=== PATIENT | female | born 1985 ===

== ENCOUNTER 2019-02-18 01:41 | Inpatient (IN) | payer OTHER ==
[2019-02-18] MEDS ORDERED: LACTATED RINGERS 1,000 ML ONE (02:51)
[2019-02-18] MEDS ORDERED: AMPICILLIN/NS 2 GM/100 ML 2 GM/100 ML BAG IV ONE (03:07)
[2019-02-18] MEDS ORDERED: BUTORPHANOL 2 MG/1 ML INJ IV PRN (03:07)
[2019-02-18] MEDS ORDERED: LIDOCAINE (2%) 20 MG/1 ML VIAL 20 ML MDV INFILTRATI ONE ×2 (03:07→15:38)
[2019-02-18] MEDS ORDERED: MINERAL OIL 30 ML ORAL LIQD PO PRN (03:07)
[2019-02-18 03:09] LABS: Hematocrit 31.3 % (30.3-42.9); Hemoglobin 10.5 gm/dl (10.1-14.3); Mean Corpuscular HGB Conc 33 % (30-34); Mean Corpuscular Volume 83 fl (79-97); Platelet Count 301 K/mm3 (140-440); Red Blood Count 3.79 M/mm3 (3.65-5.03); Red Cell Distribution Width 17.8 % (13.2-15.2)
[2019-02-18] MEDS ORDERED: LACTATED RINGERS 1,000 ML IV SCH (04:00)
[2019-02-18] MEDS ORDERED: OXYTOCIN 20 UNIT/1000ML DRIP 20 UNITS/1,000 ML BAG IV SCH (04:00)
[2019-02-18] MEDS: fentaNYL 100 MCG/2 ML INJ IV PRN ×2 (08:46→11:43)
[2019-02-18] MEDS: AMPICILLIN/NS 1 GM/50 ML 1 GM/50 ML BAG IV SCH ×3 (08:46→14:50)
--- NOTE | 2019-02-18 09:38 | History and Physical Report ---
History of Present Illness Date of examination: 02/18/19 Date of admission: 02/18/19 03:08 Chief complaint: "my water broke" History of present illness: 33yo G 2 P 1 0 0 1 at 38 weeks 6 days here with c/o leaking fluid and contractions taht started 02/18/19 @ 00:30. SROM confirmed in triage by RN. She reports +FMs but denies VB. She is a [facility] patient who initiated care there at 30 weeks gestation. She is a late transfer from [place] where she had limited care. Her course has been unremarkable. LABS: A pos, Antibody Screen neg, Pap Test normal, RI VDRL neg, HBsAg neh, HIV neg, Duabetes Screen 82, GC/CT neg, GBS pos. Past History Past Medical History: no pertinent history Past Surgical History: no surgical history Family/Genetic History: diabetes (maternal grandmother) Social history: no significant social history, , lives with family, full code. denies: smoking, alcohol abuse, prescription drug abuse, IV drug use - Obstetrical History Expected Date of Delivery: 02/26/19 Actual Gestation: 38 Week(s) 6 Day(s) : 2 Para: 1 Hx # Term Pregnancies: 1 Number of Pregnancies: 0 Spontaneous Abortions: 0 Induced : 0 Number of Living Children: 1 #1 Infant Gender: Female year: 2[age][birth year] Birthweight: 2.863 kg (6 lbs 5 oz) Method of Delivery: Vaginal Gestational age at delivery: 40 Complications: none Medications and Allergies Allergies Allergy/AdvReac Type Severity Reaction Status Date / Time No Known Allergies Allergy Verified 02/18/19 02:55 Active Meds: Active Medications Butorphanol Tartrate (Stadol) 2 mg IV Q2H PRN PRN Reason: Pain , Severe (7-10) Fentanyl (Sublimaze) 100 mcg IV Q2H PRN PRN Reason: Labor Pain Last Admin: 02/18/19 08:46 Dose: 100 mcg Documented by: Oxytocin/Sodium Chloride (Pitocin/Ns 20 Unit/1000ml Drip) 20 units in 1,000 mls @ 125 mls/hr IV DIRECT IVELISSE Last Admin: 02/18/19 08:47 Dose: 125 mls/hr Documented by: Lactated Ringer's (Lactated Ringers) 1,000 mls @ 125 mls/hr IV DIRECT IVELISSE Ampicillin Sodium (Ampicillin/Ns 1 Gm/50 Ml) 1 gm in 50 mls @ 100 mls/hr IV Q4HR IVELISSE; Protocol Last Admin: 02/18/19 08:46 Dose: 100 mls/hr Documented by: Mineral Oil (Mineral Oil) 30 ml PO QHS PRN PRN Reason: Constipation Review of Systems All systems: negative - Vital Signs Vital signs: Vital Signs Pulse BP 91 H 120/79 02/18/19 02:00 02/18/19 02:00 Temp Pulse Resp BP Pulse Ox 98.3 F 90 20 109/63 98 02/18/19 03:30 02/18/19 09:19 02/18/19 08:46 02/18/19 09:19 02/18/19 02:04 - Physical Exam Genitourinary (Female): Positive: normal external genitalia, normal perenium Vagina: Positive: normal moisture Extremities: Positive: normal - Obstetrical FHR: auscultation normal, category 1 FHR comments: baseline 140, moderate variability, 15x15 accels. occasional early decels Uterine Contraction Monitor Mode: External Cervical Dilatation: 6 Cervical Effacement Percentage: 80 station: -2 Uterine Contraction Frequency (min): 3-4 Uterine Contraction Pattern: Regular Results Result Diagrams: 02/18/19 02:45 Abnormal lab results 02/18/19 Range/Units 02:45 RDW 17.8 H (13.2-15.2) % All other labs normal. Assessment and Plan - Patient Problems (1) 38 weeks gestation of Current Visit: Yes Status: Acute (2) Spontaneous rupture of amniotic membranes Current Visit: Yes Status: Acute (3) Active labor at term Current Visit: Yes Status: Acute Plan to address problem: Admit to L&D with routine labor orders Will start Pitocin for labor augmentation, if indicated Anticipate vaginal delivery (4) Group B Streptococcus carrier, +RV culture, currently Current Visit: Yes Status: Acute Plan to address problem: Continue ampicillin for GBS prophylaxis
[2019-02-18] MEDS ORDERED: ePHEDrine SULFATE 50 MG/1 ML INJ IV PRN (10:30)
[2019-02-18] MEDS ORDERED: TERBUTALINE 1 MG/1 ML INJ IVP PRN (10:30)
[2019-02-18] MEDS ORDERED: TERBUTALINE 1 MG/1 ML INJ SUB-Q PRN (10:30)
[2019-02-18] MEDS ORDERED: FLU VACC QUAD 2019-20 (3 YR UP)/PF 60 MCG/0.5 ML SYRINGE IM ONE (12:00)
[2019-02-18] MEDS ORDERED: OXYTOCIN DRIP 30,000 MILLIUNITS/500 ML BAG IV ONE (14:42)
--- NOTE | 2019-02-18 16:18 | Procedure Note ---
OB Delivery Note - Delivery Date of Delivery: 02/18/19 (15:36) Surgeon: HI ALEJANDRO (CNM) Estimated blood loss: 300cc - Vaginal Delivery presentation: vertex Delivery position: OA Intrapartum events: meconium (terminal), extend. bradycardia (2nd stage pushing) Delivery induction: none Delivery augmentation: pitocin Delivery monitor: external FHT, external uterine Route of delivery: (15:36) Delivery placenta: spontaneous (15:44) Delivery cord: nuchal cord (CAN x1 tight. Reduced after delivery), 3 umbilical vessels Episiotomy: midline Delivery laceration: 1st degree Delivery repair: vicryl (2-0 CT1) Anesthesia: local Delivery comments: of a less vigorous term 7 lbs 14 oz male on 02/18/19 @ 15:36 over midline episiotomy and via somersault maneuver. Umbilical cord double-clamped and cut and baby handed over to NICU/Resp team for resuscitation. Spontaneous delivery of placenta, Castillo-side presenting at 15:44. Moderate lochia present. Fundal massage and IV Pitocin bolus initiated. Fundus F/ML/U-1. Episiotomy repaired with 2-0 vicryl needle under local anesthesia. Patient tolerated the procedure well. Placenta intact; was discarded. Mom and baby in stable condition. - A at 1 minute: 8 at 5 minutes: 9 Gender: Male (7 lbs 14 oz (3563 gm); 20in)
[2019-02-18] MEDS ORDERED: ACETAMINOPHEN 325 MG TAB PO PRN (16:21)
[2019-02-18] MEDS ORDERED: HYDROcodone/ACETAMINOPHEN 5-325 MG TAB PO PRN (16:21)
[2019-02-18] MEDS ORDERED: diphenhydrAMINE 25 MG CAP PO PRN (16:21)
[2019-02-18] MEDS ORDERED: BENZOCAINE/MENTHOL 20/0.5% TOP SPRAY 56 GM TP PRN (16:21)
[2019-02-18] MEDS ORDERED: ONDANSETRON 4 MG/2 ML INJ IV PRN (16:21)
[2019-02-18] MEDS ORDERED: MAGNESIUM HYDROXIDE (MOM) ORAL LIQD UDC PO PRN (16:21)
[2019-02-18] MEDS ORDERED: PROMETHAZINE 25 MG RECT SUPP PR PRN (16:21)
[2019-02-18] MEDS ORDERED: WITCH HAZEL/ GLYCERIN PAD TP PRN (16:21)
[2019-02-18] MEDS ORDERED: LANOLIN/ZINC/DIMETHICONE (LANSINOH) 7 GM TP PRN (16:21)
[2019-02-18] MEDS ORDERED: PROMETHAZINE 25 MG TAB PO PRN (16:21)
[2019-02-18] MEDS: DOCUSATE SODIUM 100 MG CAP PO SCH (21:40)
[2019-02-18] MEDS: FERROUS SULFATE 325 MG TAB PO SCH (21:40)
[2019-02-19] MEDS: IBUPROFEN 600 MG TAB PO SCH ×4 (00:14→17:36)
[2019-02-19 05:55] LABS: Hematocrit 26.7 % (30.3-42.9); Hemoglobin 8.9 gm/dl (10.1-14.3)
[2019-02-19] MEDS: PRENATAL VIT27-FE FUMARATE-FOLIC ACID VIT TAB PO SCH (09:23)
[2019-02-19] MEDS: DOCUSATE SODIUM 100 MG CAP PO SCH (09:23)
[2019-02-19] MEDS: FERROUS SULFATE 325 MG TAB PO SCH (09:23)
--- NOTE | 2019-02-19 09:50 | Progress Note ---
Assessment and Plan - Patient Problems (1) Status post normal vaginal delivery Current Visit: Yes Status: Acute Plan to address problem: Continue routine PP orders Anticipate d/c home tomorrow F/U at office in 6 wks for routine PP visit or prn (2) Anemia Current Visit: Yes Status: Acute Qualifiers: Anemia type: iron deficiency Plan to address problem: Asymptomatic Continue oral daily iron supplementation as directed Increase iron rich foods into diet Subjective - Subjective Date of service: 02/19/19 Principal diagnosis: S/P ; PPD#1 Interval history: See admission H & P; OB delivery summary and PP progress notes Patient reports: appetite normal, voiding normally, pain well controlled, flatus, ambulating normally : doing well, bottle feeding (and ) Objective - Vital Signs Latest vital signs: Vital Signs Temp Pulse Resp BP BP Pulse Ox 02/19/19 06:15 97.7 F 89 20 96/55 98 02/19/19 05:36 20 02/19/19 02:27 98.6 F 78 18 101/58 98 02/19/19 00:14 20 02/18/19 21:31 98.7 F 86 18 101/61 98 02/18/19 20:30 98.7 F 86 18 101/61 98 02/18/19 17:25 97.8 F 89 18 116/67 99 02/18/19 16:57 97 H 117/64 02/18/19 16:43 99 H 121/70 02/18/19 16:27 97 H 116/57 02/18/19 16:16 102 H 120/60 02/18/19 16:02 93 H 122/64 02/18/19 15:58 96 H 120/59 02/18/19 15:52 115 H 128/64 02/18/19 15:47 103 H 121/65 02/18/19 15:43 101 H 119/60 02/18/19 15:30 93 H 80 L 02/18/19 15:29 129 H 100 02/18/19 15:25 80 82 L 02/18/19 15:22 88 98 02/18/19 15:17 105 H 99 02/18/19 15:12 104 H 100 02/18/19 15:06 92 H 99 02/18/19 15:01 97 H 100 02/18/19 14:56 100 H 94 02/18/19 14:49 98 H 122/57 97 02/18/19 14:44 106 H 100 02/18/19 14:39 110 H 98 02/18/19 14:37 58 L 88 02/18/19 14:34 103 H 99 02/18/19 14:30 103 H 86 02/18/19 14:28 102 H 97 02/18/19 14:23 105 H 100 02/18/19 14:20 102 H 106/57 02/18/19 14:18 109 H 97 02/18/19 14:16 84 02/18/19 14:13 98 H 98 02/18/19 14:08 101 H 99 02/18/19 14:03 101 H 100 02/18/19 13:58 97 H 99 02/18/19 13:53 99 H 99 02/18/19 13:49 100 H 107/52 02/18/19 13:48 104 H 100 02/18/19 13:43 102 H 100 02/18/19 13:38 102 H 100 02/18/19 13:19 104 H 116/70 02/18/19 12:50 93 H 114/67 02/18/19 12:19 85 123/71 02/18/19 11:50 73 141/67 02/18/19 11:21 101 H 115/68 02/18/19 10:51 85 114/70 02/18/19 10:19 96 H 120/60 02/18/19 09:49 86 111/69 Intake and Output 02/18/19 02/19/19 02/19/19 23:59 07:59 15:59 Intake Total 480 Output Total 600 Balance -120 Intake: Intake, Free Water 480 Output: Urine 600 Void 600 Other: Total, Output Amount 600 - Exam Breasts: Present: normal Cardiovascular: Present: Regular rate Lungs: Present: Normal air movement Abdomen: Present: soft Uterus: Present: firm, fundal height below umbilicus (U-1) Extremities: Present: normal Deep Tendon Reflex Grade: Normal +2 Incision: Present: other (1st degree perineal laceration, healing as expected) - Labs Labs: Abnormal lab results 02/19/19 Range/Units 05:33 Hgb 8.9 L (10.1-14.3) gm/dl Hct 26.7 L (30.3-42.9) %
--- NOTE | 2019-02-19 09:56 | Discharge Summary ---
Providers - Providers Date of Admission: 02/18/19 03:08 Date of discharge: 02/20/19 Attending physician: DUSTIN TOTH MD Primary care physician: DUSTIN TOTH MD Hospitalization Reason for admission: rupture of membranes, IUP at term Delivery: Episiotomy: none Laceration: 1st degree (healing as expected) Other procedures: none complications: none Discharge diagnosis: IUP at term delivered, other (Anemia) [place] baby: male Hospital course: See admission H & P; OB delivery summary and PP progress notes Condition at discharge: Stable Disposition: DC-01 TO HOME OR SELFCARE - Discharge Diagnoses (1) Status post normal vaginal delivery Status: Acute (2) Anemia Status: Acute Qualifiers: Anemia type: iron deficiency Plan - Discharge Medications Prescriptions: Ferrous Sulfate [Feosol 325 MG tab] 325 mg PO BID 30 Days #60 tablet - Provider Discharge Summary Activity: routine, no sex for 6 weeks, no heavy lifting 4 weeks, no strenuous exercise Diet: other (Iron rich diet) Instructions: routine Additional instructions: [] Smoking cessation referral if applicable(refer to patient education folder for contact #) [] Refer to [facility] Booklet Call your doctor immediately for: * Fever > 100.5 * Heavy vaginal bleeding ( >1 pad per hour) * Severe persistent headache * Shortness of breath * Reddened, hot, painful area to leg or breast * Drainage or odor from incision. * Keep laceration site clean and dry at all times and follow doctor's instructions regarding bathing/showering * Continue daily oral iron supplementation as directed - Follow up plan Follow up: DUSTIN TOTH MD [Primary Care Provider] - 6 Weeks
[2019-02-20] MEDS: FERROUS SULFATE 325 MG TAB PO SCH (10:37)
[2019-02-20] MEDS: DOCUSATE SODIUM 100 MG CAP PO SCH (10:37)
[2019-02-20] MEDS: PRENATAL VIT27-FE FUMARATE-FOLIC ACID VIT TAB PO SCH (10:38)
[2019-02-20 15:02] VITALS: BP 102/59
== END 2019-02-20 15:00 | disposition home or self-care (01) | DRG 807 ==
LOC: TRG 01:41 → LD 02:09 → TRG 03:07 → OBSVTOIN 03:08 → LD 03:08 → OB 17:26
PROVIDERS: ADMIT Obstetrics & Gynecology; ATTEND Obstetrics & Gynecology
PROC: 10E0XZZ Delivery of Products of Conception, External Approach (ICD-10-PCS; principal; 2019-02-18)
PROC: 0HQ9XZZ Repair Perineum Skin, External Approach (ICD-10-PCS; 2019-02-18)
PROC: 0W8NXZZ Division of Female Perineum, External Approach (ICD-10-PCS; 2019-02-18)
DX: O99.824 Streptococcus B carrier state complicating childbirth (principal); Z37.0 Single live birth; O76 Abnormality in fetal heart rate and rhythm complicating labor and delivery; O70.0 First degree perineal laceration during delivery; O69.1XX0 Labor and delivery complicated by cord around neck, with compression, not applicable or unspecified; O77.0 Labor and delivery complicated by meconium in amniotic fluid; Z3A.38 38 weeks gestation of pregnancy; Z83.3 Family history of diabetes mellitus; O99.02 Anemia complicating childbirth; D50.9 Iron deficiency anemia, unspecified
CPT/HCPCS: 36415; 85014; 85018; 85027; 86592; 86850; 86900; 86901; 87806; 90686; 96360; 96374; G0378; J0290; J2590; J3010; J7120

== ENCOUNTER 2020-11-27 15:09 | Inpatient (IN) | payer MEDICAID, OTHER ==
[2020-11-27] MEDS ORDERED: NalbUPHINE 10 MG/1 ML INJ IV PRN (16:56)
[2020-11-27] MEDS ORDERED: LIDOCAINE (2%) 20 MG/1 ML VIAL 20 ML MDV INFILTRATI ONE (16:56)
[2020-11-27] MEDS ORDERED: miSOPROStol 200 MCG TAB PR PRN (16:56)
[2020-11-27] MEDS ORDERED: TERBUTALINE 1 MG/1 ML INJ SUB-Q PRN (16:56)
[2020-11-27] MEDS ORDERED: BUTORPHANOL 2 MG/1 ML INJ IV PRN ×2 (16:56)
[2020-11-27] MEDS ORDERED: METHYLERGONOVINE MALEATE 0.2 MG/ML VIAL IM PRN (16:56)
[2020-11-27] MEDS ORDERED: LOPERAMIDE 2 MG CAP PO PRN (16:56)
[2020-11-27] MEDS ORDERED: CARBOPROST TROMETHAMINE 250 MCG/1 ML INJ IM PRN (16:56)
[2020-11-27] MEDS ORDERED: MINERAL OIL 30 ML ORAL LIQD PO PRN (16:56)
[2020-11-27] MEDS ORDERED: ePHEDrine SULFATE 50 MG/1 ML INJ IV PRN ×2 (16:56→23:05)
[2020-11-27] MEDS ORDERED: OXYTOCIN 10 UNIT/1 ML INJ IM PRN (16:56)
[2020-11-27] MEDS ORDERED: ONDANSETRON 4 MG/2 ML INJ IV PRN (16:56)
[2020-11-27] MEDS ORDERED: ACETAMINOPHEN 325 MG TAB PO PRN (16:56)
[2020-11-27] MEDS ORDERED: fentaNYL 100 MCG/2 ML INJ IV PRN (16:56)
[2020-11-27] MEDS ORDERED: OXYTOCIN DRIP 30 UNITS/500 ML BAG IV SCH ×2 (17:00)
[2020-11-27] MEDS ORDERED: LACTATED RINGERS 1,000 ML IV SCH (17:15)
[2020-11-27 19:01] LABS: Hemoglobin 11.2 gm/dl (10.1-14.3); Mean Corpuscular HGB Conc 34 % (30-34); Mean Corpuscular Volume 84 fl (79-97); Platelet Count 281 K/mm3 (140-440); Red Blood Count 3.92 M/mm3 (3.65-5.03)
[2020-11-27] MEDS ORDERED: NALOXONE 2 MG/2 ML INJ IV PRN (23:05)
--- NOTE | 2020-11-27 23:05 | Anesthesia Consultation ---
Anesthesia Consult and Med Hx Date of service: 11/27/20 - Airway Anesthetic Teeth Evaluation: Good ROM Head & Neck: Adequate Mental/Hyoid Distance: Adequate Mallampati Class: Class II Intubation Access Assessment: Probably Good - Pulmonary Exam CTA: Yes - Cardiac Exam Cardiac Exam: RRR - Pre-Operative Health Status ASA Pre-Surgery Classification: ASA2 Proposed Anesthetic Plan: Epidural - Pulmonary Hx Asthma: No COPD: No Hx Pneumonia: No - Cardiovascular System Hx Hypertension: No - Central Nervous System Hx Seizures: No Hx Psychiatric Problems: No - Endocrine Hx Renal Disease: No Hx End Stage Renal Disease: No Hx Hypothyroidism: No Hx Hyperthyroidism: No - Hematic Hx Anemia: Yes Hx Sickle Cell Disease: No - Other Systems Hx Alcohol Use: No
--- NOTE | 2020-11-27 23:33 | Progress Note ---
Labor Epidural - Labor Epidural Start Time: 23:20 Stop Time: 23:23 Performed by:: NICOLÁS DAMICO Procedure: Patient is requesting epidural for labor pain. H&P, and labs reviewed. Procedure explained, questions answered, consent obtained. Patient in sitting position with blood pressure cuff and pulse ox on and working. Timeout performed immediately before start of procedure. Sterile chlorahexadine 0.5% prep/drape. 3 mL 1% lidocaine skin wheal at L[3]-L[4]. 17-gauge tuohy epidural needle advanced to [id number] with saline at [7] cm. 25-gauge spinal needle advanced until clear, free-flowing CSF. Intrathecal dexmedetomidine [5] mcg administered and needle removed. Epidural catheter advanced to [12] cm, negative aspiration for blood and csf, negative test dose 3 ml 1.5% lidocaine with epinephrine. Sterile sponge and tegaderm applied, followed by tape reinforcement. Patient tolerated procedure well.
[2020-11-27] MEDS ORDERED: fentaNYL-BUPIV 2 MCG/ML-0.125% 200 MCG/100 ML BAG EPIDURAL SCH (23:45)
[2020-11-28] MEDS ORDERED: LIDOCAINE (2%) 20 MG/1 ML VIAL 20 ML MDV INFILTRATI ONE (03:30)
[2020-11-28] MEDS ORDERED: diphenhydrAMINE 25 MG CAP PO PRN (03:37)
[2020-11-28] MEDS ORDERED: LANOLIN/ZINC/DIMETHICONE (LANSINOH) 7 GM TP PRN (03:37)
[2020-11-28] MEDS ORDERED: ACETAMINOPHEN 325 MG TAB PO PRN (03:37)
[2020-11-28] MEDS ORDERED: HYDROcodone/ACETAMINOPHEN 5-325 MG TAB PO PRN (03:37)
[2020-11-28] MEDS ORDERED: PROMETHAZINE 25 MG RECT SUPP PR PRN (03:37)
[2020-11-28] MEDS ORDERED: PROMETHAZINE 25 MG TAB PO PRN (03:37)
[2020-11-28] MEDS ORDERED: MAGNESIUM HYDROXIDE (MOM) ORAL LIQD UDC PO PRN (03:37)
[2020-11-28] MEDS ORDERED: WITCH HAZEL/ GLYCERIN PAD TP PRN (03:37)
[2020-11-28] MEDS ORDERED: ONDANSETRON 4 MG/2 ML INJ IV PRN (03:37)
--- NOTE | 2020-11-28 03:41 | History and Physical Report ---
History of Present Illness Date of examination: 11/28/20 Date of admission: 11/27/20 16:56 Chief complaint: contractions History of present illness: 34yo with contractions at 39+ weeks admitted for AOL. GBS neg Past History Past Surgical History: no surgical history - Obstetrical History Expected Date of Delivery: 11/30/20 Actual Gestation: 39 Week(s) 5 Day(s) : 3 Medications and Allergies Allergies Allergy/AdvReac Type Severity Reaction Status Date / Time No Known Allergies Allergy Verified 11/27/20 17:04 Home Medications Medication Instructions Recorded Confirmed Last Taken Type Ferrous Sulfate [Feosol 325 MG tab] 325 mg PO BID 30 Days #60 tablet 02/19/19 11/27/20 11/26/20 10:00 Rx Vitamin 1 tab PO DAILY 11/27/20 11/27/20 11/26/20 10:00 History Active Meds: Active Medications Acetaminophen (Acetaminophen 325 Mg Tab) 650 mg PO Q4H PRN PRN Reason: Pain, Mild (1-3) Butorphanol Tartrate (Butorphanol 2 Mg/1 Ml Inj) 1 mg IV Q2H PRN PRN Reason: Pain, Moderate(4-6) LABOR PAIN Butorphanol Tartrate (Butorphanol 2 Mg/1 Ml Inj) 2 mg IV Q2H PRN PRN Reason: Pain , Severe (7-10) Last Admin: 11/27/20 21:22 Dose: 2 mg Documented by: Carboprost Tromethamine (Carboprost Tromethamine 250 Mcg/1 Ml Inj) 250 mcg IM ONCE PRN PRN Reason: Uterine Bleeding Ephedrine Sulfate (Ephedrine Sulfate 50 Mg/1 Ml Inj) 10 mg IV Q2M PRN PRN Reason: Hypotension Fentanyl (Fentanyl 100 Mcg/2 Ml Inj) 100 mcg IV Q2H PRN PRN Reason: Pain,Severe (7-10) LABOR PAIN Oxytocin/Sodium Chloride (Pitocin/Ns 30 Unit/500ml) 30 units in 500 mls @ 2 mls/hr IV TITR IVELISSE; Protocol Last Admin: 11/27/20 21:29 Dose: 2 mls/hr, 2 mls/hr Documented by: Lactated Ringer's (Lactated Ringers) 1,000 mls @ 125 mls/hr IV DIRECT IVELISSE Last Admin: 11/27/20 18:18 Dose: 125 mls/hr Documented by: Oxytocin/Sodium Chloride (Pitocin/Ns 30 Unit/500ml) 30 units in 500 mls @ 40 mls/hr IV TITR IVELISSE; Protocol Fentanyl/Bupivacaine/Sodium Chlor (Fentanyl-Bupiv 2 Mcg/Ml-0.125%) 200 mcg in 100 mls @ 12 mls/hr EPIDURAL TITR IVELISSE; Protocol Loperamide HCl (Loperamide 2 Mg Cap) 2 mg PO ONCE PRN PRN Reason: give with Hemabate Methylergonovine Maleate (Methylergonovine Maleate 0.2 Mg/Ml Vial) 0.2 mg IM ONCE PRN PRN Reason: Uterine Bleeding Mineral Oil (Mineral Oil 30 Ml Oral Liqd) 30 ml PO QHS PRN PRN Reason: Constipation Misoprostol (Misoprostol 200 Mcg Tab) 800 mcg MS ONCE PRN PRN Reason: Uterine Bleeding Nalbuphine HCl (Nalbuphine 10 Mg/1 Ml Inj) 10 mg IV Q2H PRN PRN Reason: Pain, Moderate (4-6) Naloxone HCl (Naloxone 2 Mg/2 Ml Inj) 0.2 mg IV Q5M PRN PRN Reason: Respiratory sedation Ondansetron HCl (Ondansetron 4 Mg/2 Ml Inj) 4 mg IV Q8H PRN PRN Reason: Nausea And Vomiting Oxytocin (Oxytocin 10 Unit/1 Ml Inj) 10 unit IM ONCE PRN PRN Reason: Uterine Bleeding Terbutaline Sulfate (Terbutaline 1 Mg/1 Ml Inj) 0.25 mg SUB-Q ONCE PRN PRN Reason: Hyperstimulation/Hypertonicity - Vital Signs Vital signs: Vital Signs Temp Pulse Resp BP Pulse Ox 98.7 F 83 20 108/65 100 11/27/20 18:19 11/27/20 18:19 11/27/20 18:19 11/27/20 18:19 11/27/20 18:19 Temp Pulse Resp BP Pulse Ox 98.7 F 73 18 106/55 100 11/28/20 00:02 11/28/20 00:02 11/28/20 00:02 11/28/20 00:02 11/28/20 00:02 - Physical Exam Breasts: Positive: normal Cardiovascular: Regular rate Lungs: Positive: Clear to auscultation Abdomen: Positive: normal appearance, soft, normal bowel sounds Genitourinary (Female): Positive: normal external genitalia, normal perenium Vulva: both: normal Vagina: Positive: normal moisture Uterus: Positive: enlarged Anus/Rectum: Positive: normal perianal skin Extremities: Positive: normal Deep Tendon Reflex Grade: Normal +2 - Obstetrical FHR: category 1 Cervical Dilatation: 4 Cervical Effacement Percentage: 80 station: -2 Results Result Diagrams: 11/27/20 18:00 Abnormal lab results 11/27/20 Range/Units 18:00 RDW 16.0 H (13.2-15.2) % All other labs normal. Assessment and Plan admit CFM oxytocin pain meds luisito Andrews MD .
--- NOTE | 2020-11-28 03:44 | Procedure Note ---
OB Delivery Note - Delivery Date of Delivery: 11/28/20 Surgeon: DUSTIN TOTH Estimated blood loss: 200cc - Vaginal Delivery position: OA Intrapartum events: none Delivery induction: none Delivery augmentation: rupture of membranes, pitocin Delivery monitor: external FHT, external uterine Route of delivery: Delivery placenta: spontaneous Delivery cord: 3 umbilical vessels Episiotomy: midline Delivery repair: vicryl Anesthesia: local Delivery comments: Patient pushed to deliver a viable male over a midline episiotomy with weight 3715gms and 8/9. Position CHANG. +ve nuchal cord reduced at delivery. Spontaneous cry at delivery. Delivery of the anterior shoulder atraumatic, remainder of delivery uncomplicated. Cord clamped cut and baby handed to waiting JOVANY team. Spontaneous delivery of an intact placenta with three-vessel cord. Midline episiotomy repaired wtih 0-Vicryl. Firm fundus, EBL 200ml. All sponge needle and instrument counts correct x2. Mom and baby stable to . Cyndi Toth MD
[2020-11-28] MEDS: IBUPROFEN 600 MG TAB PO SCH (04:51)
[2020-11-28 15:28] LABS: Hematocrit 26.5 % (30.3-42.9); Hemoglobin 8.7 gm/dl (10.1-14.3)
--- NOTE | 2020-11-28 17:36 | Post Anesthesia Evaluation ---
- Post Anesthesia Evaluation Patient Participated: Yes Airway Patent: Yes Stable Respiratory Function: Yes Nausea/Vomiting: No Temp > 96.8F: Yes Pain Manageable: Yes Adequeate Hydration: Yes Anesthesia Complications: No Block Receding Appropriately: Yes
[2020-11-29] MEDS: IBUPROFEN 600 MG TAB PO SCH ×2 (00:35→08:27)
--- NOTE | 2020-11-29 11:21 | Progress Note ---
Assessment and Plan A: PP Day #1 Asymptomatic Anemia P: Follow Routine Orders Infed 100mg IM x 1 dose D/C home today per patient request RTO in 6 Weeks Subjective - Subjective Date of service: 11/29/20 Patient reports: appetite normal, voiding normally, pain well controlled, flatus, ambulating normally [place]: doing well, bottle feeding (and ) Objective - Vital Signs Latest vital signs: Vital Signs Temp Pulse Resp BP Pulse Ox Pulse Ox 11/29/20 08:20 97.9 F 74 19 95/57 100 11/29/20 08:00 99 11/29/20 00:17 97.7 F 84 18 99/56 99 11/28/20 21:49 99 11/28/20 18:00 98 11/28/20 16:20 98 11/28/20 15:35 97.7 F 71 20 94/55 99 11/28/20 14:20 98 11/28/20 12:20 98 11/28/20 11:39 98.2 F 67 20 100/54 99 Intake and Output 11/28/20 11/29/20 11/29/20 22:59 06:59 14:59 Intake Total 780 480 360 Output Total 400 Balance 380 480 360 Intake: Oral 780 480 360 Output: Urine 400 Void 400 Other: Total, Intake Amount 240 120 120 Total, Output Amount 400 # Voids Void 1 1 1 - Exam Breasts: Present: normal Cardiovascular: Present: Regular rate Lungs: Present: Clear to auscultation, Normal air movement Abdomen: Present: normal appearance, soft, normal bowel sounds Uterus: Present: normal, firm, fundal height below umbilicus Extremities: Present: normal - Labs Labs: Abnormal lab results 11/28/20 Range/Units 15:11 Hgb 8.7 L (10.1-14.3) gm/dl Hct 26.5 L D (30.3-42.9) %
--- NOTE | 2020-11-29 11:23 | Discharge Summary ---
Providers - Providers Date of Admission: 11/27/20 16:56 Date of discharge: 11/29/20 Attending physician: DUSTIN TOTH MD Primary care physician: DUSTIN TOTH MD Hospitalization Reason for admission: active labor Delivery: Episiotomy: midline Laceration: none Other procedures: none complications: none Discharge diagnosis: IUP at term delivered baby: male Condition at discharge: Good Disposition: 01 HOME / SELF CARE / HOMELESS Plan - Provider Discharge Summary Activity: routine, no sex for 6 weeks, no heavy lifting 4 weeks, no strenuous exercise Diet: routine Instructions: routine Additional instructions: [] Smoking cessation referral if applicable(refer to patient education folder for contact #) [] Refer to [facility]'s [facility] Booklet Call your doctor immediately for: * Fever > 100.5 * Heavy vaginal bleeding ( >1 pad per hour) * Severe persistent headache * Shortness of breath * Reddened, hot, painful area to leg or breast * Drainage or odor from incision. * Keep incision clean and dry at all times and follow doctor's instructions regarding bathing/showering - Follow up plan Follow up: DUSTIN TOTH MD [Primary Care Provider] - 6 Weeks
[2020-11-29] MEDS ORDERED: IRON DEXTRAN COMPLEX 100 MG/2 ML INJ IM SCH (12:00)
[2020-11-29 15:35] VITALS: BP 99/56
== END 2020-11-29 15:20 | disposition home or self-care (01) | DRG 807 ==
LOC: TRG 15:09 → APU 15:11 → LD 16:56 → TRG 16:56 → LD 18:58 → OB 11-28 06:20
PROVIDERS: ADMIT Obstetrics & Gynecology; ATTEND Obstetrics & Gynecology
PROC: 10E0XZZ Delivery of Products of Conception, External Approach (ICD-10-PCS; principal; 2020-11-28)
PROC: 0W8NXZZ Division of Female Perineum, External Approach (ICD-10-PCS; 2020-11-28)
PROC: 3E0R3BZ Introduction of Anesthetic Agent into Spinal Canal, Percutaneous Approach (ICD-10-PCS; 2020-11-28)
PROC: 00HU33Z Insertion of Infusion Device into Spinal Canal, Percutaneous Approach (ICD-10-PCS; 2020-11-28)
DX: O99.02 Anemia complicating childbirth (principal); Z37.0 Single live birth; Z3A.38 38 weeks gestation of pregnancy; Z3A.39 39 weeks gestation of pregnancy; Z20.822 Contact with and (suspected) exposure to COVID-19
CPT/HCPCS: 36415; 85014; 85018; 85027; 86850; 86900; 86901; G0378; J0595; J1750; J2590; J7120; U0003